=== PATIENT | female | born 1985 | race Caucasian/White ===

== ENCOUNTER 2020-09-26 05:35 | Inpatient (IN) | payer OTHER ==
[2020-09-26 06:46] LABS: HCT 43.4 % (37.0-47.0); HGB 14.5 g/dl (12.5-16.0); MCH 31.8 pg (25.0-31.0); MCHC 33.4 g/dL (32.0-36.0); MCV 95.2 fL (78.0-100.0); MPV 11.9 fL (6.0-9.5); RBC 4.56 M/uL (4.20-5.40); RDW 13.1 % (11.5-14.0); WBC 15.2 K/uL (4.0-10.5)
[2020-09-26 06:52] LABS: BILIRUBIN NEGATIVE (NEGATIVE); BLOOD NEGATIVE Ery/uL (NEGATIVE); CLARITY CLEAR (CLEAR); COLOR YELLOW (YELLOW); GLUCOSE (U) NORMAL (NORMAL); LEUKOCYTES NEGATIVE Leu/uL (NEGATIVE); NITRITE NEGATIVE (NEGATIVE); PROTEIN NEGATIVE (NEGATIVE); SPECIFIC GRAVITY 1.015 (1.001-1.030); UROBILINOGEN 0.2 mg/dL (0.2-1.0)
[2020-09-27 07:05] LABS: HCT 37.6 % (37.0-47.0); HGB 12.6 g/dl (12.5-16.0); MCH 32.4 pg (25.0-31.0); MCHC 33.5 g/dL (32.0-36.0); MCV 96.7 fL (78.0-100.0); MPV 11.3 fL (6.0-9.5); RBC 3.89 M/uL (4.20-5.40); RDW 13.2 % (11.5-14.0); WBC 18.9 K/uL (4.0-10.5)
== END 2020-09-28 12:42 | disposition home or self-care (01) | DRG 807 ==
LOC: FOB 05:35
PROVIDERS: ADMIT Obstetrics & Gynecology
PROC: 10E0XZZ Delivery of Products of Conception, External Approach (ICD-10-PCS; principal; 2020-09-26)
PROC: 10907ZC Drainage of Amniotic Fluid, Therapeutic from Products of Conception, Via Natural or Artificial Opening (ICD-10-PCS; 2020-09-26)
DX: O99.284 Endocrine, nutritional and metabolic diseases complicating childbirth (principal); Z37.0 Single live birth; E05.90 Thyrotoxicosis, unspecified without thyrotoxic crisis or storm; Z3A.39 39 weeks gestation of pregnancy; O99.343 Other mental disorders complicating pregnancy, third trimester; F41.9 Anxiety disorder, unspecified; O26.893 Other specified pregnancy related conditions, third trimester; Z67.91 Unspecified blood type, Rh negative
CPT/HCPCS: 36415; 81003; J7120; U0002